=== PATIENT | male | born 1995 | race Caucasian/White ===

== ENCOUNTER 2017-03-21 17:03 | Emergency (ER) | payer OTHER, SELFPAY ==
[2017-03-21 17:40] LABS: ANION GAP 16.6; CHLORIDE,CL 101 mmol/L (101-111); SODIUM,NA 136 mmol/L (135-145)
[2017-03-21] MEDS ORDERED: Sodium Chloride 0.9% 1,000 ML IV ONE (17:43)
[2017-03-21 17:56] VITALS: BP 113/52
--- NOTE | 2017-03-22 09:07 | EDM.PDOC ---
Scribed by Michelle Ortiz 03/21/17 2307 for Destiny Bhatt NP ED HPI GENERAL MEDICAL PROBLEM - General Chief Complaint: Gastrointestinal Problem Stated Complaint: POSSIBLE FLU [id number] Time Seen by Provider: 03/21/17 17:22 Source of Information: Reports: Patient, RN, RN Notes Reviewed History Limitations: Reports: No Limitations - History of Present Illness INITIAL COMMENTS - FREE TEXT/NARRATIVE: Patient presents to ER with complaint of diarrhea, vomiting, body aches, and fever that began today. He has had a cough about 1 month. He received his flu shot yesterday. Onset: Today Duration: Getting Worse Location: Reports: Abdomen Quality: Reports: Ache Severity: Moderate Improves with: Reports: None Worsens with: Reports: None Associated Symptoms: Reports: No Other Symptoms - Related Data Allergies Allergy/AdvReac Type Severity Reaction Status Date / Time cephalexin Allergy Cannot Verified 03/21/17 17:31 Remember clindamycin Allergy Cannot Verified 03/21/17 17:31 Remember Past Medical History Musculoskeletal History: Reports: Amputation - Past Surgical History Musculoskeletal Surgical History: Reports: Amputation Social & Family History - Family History Family Medical History: Noncontributory - Tobacco Use Smoking Status *Q: Never Smoker - Recreational Drug Use Recreational Drug Use: No ED ROS GENERAL - Review of Systems Review Of Systems: ROS reveals no pertinent complaints other than HPI. ED EXAM, GI/ABD - Physical Exam Exam: See Below Exam Limited By: No Limitations General Appearance: Other (palor) Eyes: Bilateral: Normal Appearance Ears: Normal External Exam, Normal Canal, Hearing Grossly Normal, Normal TMs Nose: Normal Inspection, Normal Mucosa, No Blood Throat/Mouth: Normal Inspection, Normal Lips, Normal Teeth, Normal Gums, Normal Oropharynx, Normal Voice, No Airway Compromise Head: Atraumatic, Normocephalic Neck: Normal Inspection, Supple, Non-Tender, Full Range of Motion Respiratory/Chest: Lungs Clear Cardiovascular: Normal Peripheral Pulses, Regular Rate, Rhythm, No Edema, No Gallop, No JVD, No Murmur, No Rub GI/Abdominal Exam: Other (hyperactive bowel sounds.) (Male) Exam: Deferred Rectal (Males) Exam: Deferred Back Exam: Normal Inspection, Full Range of Motion, NT Extremities: Normal Inspection, Normal Range of Motion, Non-Tender, Normal Capillary Refill, No Pedal Edema Neurological: Other (body aches) Psychiatric: Normal Affect, Normal Mood Skin Exam: Warm, Dry, Intact, Normal Color, No Rash Lymphatic: No Adenopathy Course - Vital Signs Last Recorded V/S: Last Vital Signs Temp 99.4 F 03/21/17 17:55 Pulse 75 03/21/17 17:55 Resp 18 03/21/17 17:55 BP 113/52 L 03/21/17 17:55 Pulse Ox 96 03/21/17 17:55 - Orders/Labs/Meds Labs: Laboratory Tests 03/21/17 03/21/17 Range/Units 17:15 17:15 WBC 9.1 (5.0-10.0) 10^3/uL RBC 5.40 (4.6-6.2) 10^6/uL Hgb 16.3 (14.0-18.0) g/dL Hct 45.8 (40.0-54.0) % MCV 84.8 (80-100) fL MCH 30.2 (27.0-34.0) pg MCHC 35.6 H (33.0-35.0) g/dL Plt Count 200 (150-450) 10^3/uL Neut % (Auto) 85.8 H (42.2-75.2) % Lymph % (Auto) 7.7 L (20.5-50.1) % Wake % (Auto) 6.0 (2-8) % Eos % (Auto) 0.4 L (1.0-3.0) % Baso % (Auto) 0.1 (0.0-1.0) % Sodium 136 (135-145) mmol/L Potassium 3.6 (3.6-5.0) mmol/L Chloride 101 (101-111) mmol/L Carbon Dioxide 22.0 (21.0-31.0) mmol/L Anion Gap 16.6 BUN 18 (7-18) mg/dL Creatinine 0.9 (0.6-1.3) mg/dL Est Cr Clr Drug Dosing 123.50 mL/min Estimated GFR (MDRD) > 60 BUN/Creatinine Ratio 20.00 Glucose 105 (74-105) mg/dL Calcium 9.5 (8.4-10.2) mg/dl Total Bilirubin 1.9 H (0.2-1.0) mg/dL AST 24 (10-42) IU/L ALT 22 (10-60) IU/L Alkaline Phosphatase 90 (42-121) IU/L Total Protein 8.6 H (6.7-8.2) g/dl Albumin 5.0 (3.2-5.5) g/dl Globulin 3.6 Albumin/Globulin Ratio 1.39 Meds: Medications Discontinued Medications Generic Name Dose Route Start Last Admin Trade Name Freq PRN Reason Stop Dose Admin Sodium Chloride 1,000 mls @ 999 mls/hr 03/21/17 17:43 03/21/17 17:25 Normal Saline IV 03/21/17 18:43 999 mls/hr .BOLUS ONE Administration Departure - Departure Time of Disposition: 18:28 Disposition: Home, Self-Care 01 Condition: Fair Clinical Impression: Gastroenteritis, Viral URI with cough - Discharge Information Instructions: Viral Gastroenteritis, Adult, [id number], Nausea and Vomiting, Adult, [id number], Upper Respiratory Infection, Adult, [id number], Diarrhea , Adult, [id number] Referrals: PCP,None [Primary Care Provider] - Forms: ED Department Discharge Additional Instructions: Drink plenty of fluids Tylenol and ibuprofen as directed for fever and body aches Imodium for diarrhea Rest Continue over the counter medications as directed Follow up with your primary care facility if no improvement. I have read and agree with the documentation that has been completed regarding this visit. By signing this record, I attest that the documentation was completed in my physical presence and is an accurate record of the encounter.
== END 2017-03-21 18:27 | disposition home or self-care (01) ==
LOC: DL.ED 17:03
DX: K52.9 Noninfective gastroenteritis and colitis, unspecified (principal); J06.9 Acute upper respiratory infection, unspecified; Z88.1 Allergy status to other antibiotic agents
CPT/HCPCS: 36415; 80053; 85025; 87804; 99283; J7030

== ENCOUNTER 2022-03-02 18:23 | Emergency (ER) | payer OTHER ==
[2022-03-02] MEDS ORDERED: Codeine/Promethazine 10-6.25 MG/5 ML Syrup 5 ML UD Cup PO ONE ×2 (18:24→21:02)
[2022-03-02 19:21] LABS: CORONAVIRUS COVID-19 NAA NEGATIVE (NEGATIVE); RESPIRATORY SYNCYTIAL VIR NAA NEGATIVE (NEGATIVE)
[2022-03-02 19:28] VITALS: BP 104/86; PULSE 86
[2022-03-02] MEDS ORDERED: Sodium Chloride 0.9% 10 ML Syringe FLUSH PRN (19:41)
[2022-03-02] MEDS ORDERED: Sodium Chloride 0.9% 1,000 ML IV ONE (19:43)
[2022-03-02] MEDS ORDERED: Acetaminophen 500 MG Tab PO ONE (19:53)
[2022-03-02 20:18] LABS: ANION GAP 11.4 mEq/L (7-13); CHLORIDE,CL 102 mmol/L (98-107); SODIUM,NA 138 mmol/L (136-145)
[2022-03-02 20:23] LABS: ESTIMATED GFR 98 mL/min (>=60)
[2022-03-02] MEDS ORDERED: Codeine/Promethazine 10-6.25 MG/5 ML Syrup 5 ML UD Cup ONE (21:19)
== END 2022-03-02 21:29 | disposition home or self-care (01) ==
LOC: DL.ED 18:23
DX: J06.9 Acute upper respiratory infection, unspecified (principal); R19.7 Diarrhea, unspecified; Z88.1 Allergy status to other antibiotic agents; Z20.822 Contact with and (suspected) exposure to COVID-19
CPT/HCPCS: 0241U; 36415; 71045; 80053; 81001; 82150; 83605; 83690; 84145; 85025; 86140; 87081; 87430; 96360; 99284; A9270; J3490; J7030

== ENCOUNTER 2022-03-04 11:20 | Emergency (ER) | payer OTHER ==
[2022-03-04 12:34] VITALS: BP 100/66
[2022-03-04 13:27] LABS: CORONAVIRUS COVID-19 NAA NEGATIVE (NEGATIVE); RESPIRATORY SYNCYTIAL VIR NAA NEGATIVE (NEGATIVE)
[2022-03-04] MEDS ORDERED: Albuterol 6.7 GM Inhaler INH ONE (14:25)
[2022-03-04 14:41] VITALS: PULSE 90
== END 2022-03-04 14:46 | disposition home or self-care (01) ==
LOC: DL.ED 11:20
DX: J10.1 Influenza due to other identified influenza virus with other respiratory manifestations (principal); Z88.1 Allergy status to other antibiotic agents; Z20.822 Contact with and (suspected) exposure to COVID-19
CPT/HCPCS: 0241U; 99283; A9270